=== PATIENT | male | born 1995 | race Two or more races ===

== ENCOUNTER 2017-03-04 13:22 | Emergency (ER) | payer SELFPAY ==
--- NOTE | ~2017-03-04 | ER ---
[facility] AGE: 21 Y [address] ROOM: [place] [address] LOCATION: [facility] ADMIT DATE: 03/04/2017 ER/Outpatient Report DISCHARGE DATE: 03/04/2017 FAMILY PHYSICIAN: PHYSICIAN, NO ATTENDING PHYSICIAN: Nicolas Comer Time of Arrival: 1336 hours. Time of Evaluation: 1348 hours. CHIEF COMPLAINT: Fever and headache. HISTORY OF PRESENT ILLNESS: The patient states that he has had fever with cough, cold, and congestion for the last 3 days. Today he developed a frontal headache. He states his parents were concerned because he was not getting any better. He reports he has been nauseated, but has not vomited. Has had fever and chills. Headaches in the frontal aspect of his head. States he has had headaches like this before when he has been ill. ALLERGIES: HE HAS NO KNOWN ALLERGIES. MEDICATIONS: No current medications. PAST MEDICAL HISTORY: Hypertension and prediabetes. PAST SURGERIES: Negative. SOCIAL HISTORY: Denies use of tobacco or drugs. Drinks alcohol on a social basis only. REVIEW OF SYSTEMS: Negative other than those mentioned in the HPI. PHYSICAL EXAMINATION: VITAL SIGNS: He weighed 108 kg, blood pressure is 181/89, pulse of 124, respirations 20, O2 saturations 96% on room air, and temperature is 99. GENERAL: The patient is awake, alert, and oriented x4. SKIN: [place], warm, and dry. RESPIRATIONS: Even and nonlabored. HEENT: TMs are dull. Nasal is boggy. Oropharynx is red posteriorly. [facility] NAME[facility] AGE: 21 Y [address] ROOM: [place] [address] LOCATION: ED ADMIT DATE: 03/04/2017 ER/Outpatient Report DISCHARGE DATE: 03/04/2017 FAMILY PHYSICIAN: PHYSICIAN, NO ATTENDING PHYSICIAN: Nicolas Comer NECK: Supple. No lymphadenopathy. LUNGS: Lung sounds are clear throughout. HEART: Regular rate and rhythm. ABDOMEN: Soft. Nondistended. Bowel sounds are present. EMERGENCY DEPARTMENT COURSE: Strep screen was obtained. The patient was given acetaminophen 1000 mg p.o. Strep screen is negative. IMPRESSION: Viral respiratory illness. PLAN: Home. Rest. Fluids. Tylenol or ibuprofen as needed for fever or discomfort. Follow up with primary provider in the next 2 or 3 days if symptoms persist or worsen or he is welcome to return to the ER. He verbalized understanding. DORIE GEORGE APRN FOR MD OSMIN PEARCE/conor /[id number] d: 03/05/17 0128 t: 03/22/17 0902, OUTPATIENT REPORT
== END 2017-03-04 14:20 | disposition disaster alternative care site (69) ==
LOC: GMED 13:22
DX: B34.9 Viral infection, unspecified (principal); I10 Essential (primary) hypertension

== ENCOUNTER 2017-05-17 01:02 | Emergency (ER) | payer MEDICAID ==
--- NOTE | ~2017-05-17 | ER ---
PATIENT'S NAME: LAZARUS BENSON [facility] AGE: 22 Y [address] ROOM: [place] [address] LOCATION: [facility] ADMIT DATE: 05/17/2017 ER/Outpatient Report DISCHARGE DATE: 05/17/2017 FAMILY PHYSICIAN: Josue Fleming MD ATTENDING PHYSICIAN: Eren Oliver Admission date and time documented in the medical record. I saw the patient at 0115 hours. CHIEF COMPLAINT: Shortness of breath and anxiety. HISTORY OF PRESENT ILLNESS: This is a 22-year-old male who works at [employer], working there in the hot work space, he got suddenly short of breath around 2300 hours tonight. Transient chest discomfort for about 30 seconds. He was diaphoretic mainly because of the hot working conditions and his work. He got kind of a hot flash. He has been on Bystolic for 3 days for hypertension. He has had some intermittent shortness of breath over the past 3 days. He is concerned that he might be having some problems with the medication. Here in the emergency department, he is awake, alert, responsive. No chest pain. Little bit anxious and little bit short of breath. No back pain. No abdominal pain. He is not nauseated. No vomiting, diarrhea, or urinary complaints. No recent colds, coughs, flus, fever, chills, or sweats. He is not lightheaded or dizzy. He had no syncope or near syncope. No headache; eyes, ears, nose, throat, neck, or spine pain. No joint or muscle swelling, redness, or pain. No skin eruptions or rash. No history of neuro changes or endocrine problems. He does have a problem with anxiety. HOME MEDICATIONS: See attached medication list. ALLERGIES: NONE. SOCIAL HISTORY: Nonsmoker. Occasional intake of alcohol. SIGNIFICANT PAST MEDICAL HISTORY: Hypertension, gastroesophageal reflux, [id number] diabetes mellitus. OPERATIONS: None. PATIENT'S NAME: LAZARUS BENSON [facility] AGE: 22 Y [address] ROOM: [place] [address] LOCATION: [facility] ADMIT DATE: 05/17/2017 ER/Outpatient Report DISCHARGE DATE: 05/17/2017 FAMILY PHYSICIAN: Josue Fleming MD ATTENDING PHYSICIAN: Eren Oliver REVIEW OF SYSTEMS: All systems reviewed by me are negative with the exception of those discussed in the history of present illness. PHYSICAL EXAMINATION: VITAL SIGNS: Temperature 98, pulse 87, respirations 16, blood pressure 150/73, O2 saturation on room air is 97%. HEAD: Normocephalic. EYES, EARS, NOSE, THROAT: Clear. Mucous membranes moist. NECK: Negative. SPINE: Negative. LUNGS: Clear. Good air flow. No rales, rhonchi, or wheezes. HEART: Regular. Pulses are palpable. ABDOMEN: Soft, nondistended, nontender. Good bowel tones. No organomegaly or abnormal masses palpable. No CVA tenderness. EXTREMITIES: Without peripheral edema, cyanosis, or deformity. NEUROVASCULAR: Intact. SKIN: Clear. Diaphoretic. Warm. PSYCHIATRIC: The patient is anxious. IMAGING DATA: Chest x-ray showed no acute infiltrate or changes. EKG showed sinus rhythm. No acute ST elevation, ischemic change, or arrhythmia. LABORATORY DATA: D-dimer was normal at 0.29. CMS was normal except an elevated glucose of 108, elevated alkaline phosphatase 265, magnesium was 2, CPK was 61. Point of care cardiac enzymes were normal. White count 7600, 43 segs, 45 lymphocytes, 9 monos, 2 eos. Hemoglobin was 15.3 with hematocrit 44.9, platelet count [id number]. PTT was 27. Pro-time is 10.8 with an INR 1.03. EMERGENCY ROOM COURSE: I did give the patient 1 mg of Ativan sublingual here in the emergency department. This did help relax him and he was breathing better on dismissal. IMPRESSION: Shortness of breath with anxiety, etiology uncertain. May be secondary to his new blood pressure medication, Bystolic, that he has been taking for 3 days. May be intolerant or may just that he needs time to adjust to the medication. PLAN: The patient dismissed home. Observation. Activity as tolerated. Fluids and diet as tolerated. Rest. The patient is to talk with his personal physician tomorrow or call and talk with him about his symptomatology and whether this is related to the medication or not. The patient understands and agrees with PATIENT'S NAME: QIUJt BENSON [facility] AGE: 22 Y [address] ROOM: [place], [place] [address] LOCATION: [facility] ADMIT DATE: 05/17/2017 ER/Outpatient Report DISCHARGE DATE: 05/17/2017 FAMILY PHYSICIAN: Josue Fleming MD ATTENDING PHYSICIAN: Eren Oliver treatment plan. MD GÓMEZ ROBBINS/modl /[id number] d: 05/17/17 0416 t: 05/19/17 0612, OUTPATIENT REPORT
[2017-05-17 01:30] LABS: BASOPHIL % 0.3 %; EOSINOPHIL # 0.1 K/uL (0.0-0.5); EOSINOPHIL % 1.8 %; HEMATOCRIT 44.9 % (37.0-53.0); HEMOGLOBIN 15.3 g/dL (12.0-17.0); IMMATURE GRANULOCYTE % 0.3 %; LYMPHOCYTE # 3.4 K/uL (0.8-4.0); LYMPHOCYTE % 44.8 %; MCH 27.2 pg (27.0-34.0); MCHC 34.1 gm/dL (32.0-36.5); MCV 79.9 fl (83.0-98.0); MONOCYTE # 0.7 K/uL (0.0-1.0); MONOCYTE % 9.4 %; NEUTROPHIL # (ANC) 3.3 K/uL (1.4-9.0); NEUTROPHIL % 43.4 %; NRBC % 0 /100WBC (0-0.00); PLATELET COUNT 259 K/uL (150-450); RBC 5.62 M/uL (4.00-6.00); RDW-CV 13.8 % (11.9-14.6); WBC 7.6 K/uL (4.0-11.0)
[2017-05-17 01:38] LABS: INR - (THERAPEUTIC) 1.03 (0.92-1.07); PROTIME 10.8 SECONDS (9.8-11.4); PTT 27 SECONDS (25-32)
[2017-05-17 01:50] LABS: ALBUMIN 3.3 gm/dL (3.5-5.0); ALK PHOS 265 IU/L (33-138); ALT 37 IU/L (12-78); ANION GAP 11.6 (10.0-19.0); AST 13 IU/L (10-40); BLOOD UREA NITROGEN 14 mg/dL (6-24); CALCIUM 8.7 mg/dL (8.5-10.5); CHLORIDE 107 mMol/L (96-110); CO2 26 mMol/L (22-32); CPK 61 IU/L (35-332); CREATININE 0.5 mg/dL (0.6-1.3); ESTIMATED GFR (MDRD EQUATION) > 60; POTASSIUM 4.6 mMol/L (3.7-5.1); SODIUM 140 mMol/L (135-145); TOTAL BILIRUBIN 0.5 mg/dL (0.0-1.5); TOTAL PROTEIN 6.8 g/dL (6.0-8.4)
== END 2017-05-17 02:15 | disposition disaster alternative care site (69) ==
LOC: GMED 01:02
PROVIDERS: Emergency Medicine
DX: F41.9 Anxiety disorder, unspecified (principal); I10 Essential (primary) hypertension; K21.9 Gastro-esophageal reflux disease without esophagitis; E11.9 Type 2 diabetes mellitus without complications; Z79.899 Other long term (current) drug therapy